=== PATIENT | male | born 1940 | race Caucasian/White ===

== ENCOUNTER 2017-01-06 07:41 | Day surgery (SDC) | payer MEDICARE, OTHER ==
[~2017-01-06] VITALS: Ht 175.3 cm; Wt 64.0 kg
[~2017-01-06 07:41] MED LIST: ATIVAN-DPS0.5 MG PO; ATIVAN-DPS2 MG PO; BENADRYL25 MG PO; CEFTIN250 MG PO; CENTRUM SILVER1 EAC1 PO; CHLORASEPTIC SPR6 OZ PO; DEBROX OTIC15 ML AU; DELTASONE DPS1 MG PO; DOXYCYCLINE MO100 MG PO; DUONEB DPS3 ML IH; FLAGYL-DPS500 MG PO; FLONASE 0.05% D16 GM NS; LIPITOR DPS20 MG PO; MAALOX DPS30 ML PO; NITROSTAT0.4 MG SL; NIZORAL SHAMPO120 ML TP; PEPCID DPS20 MG PO; PROTONIX40 MG PO; PROVENTIL2.5 MG/0.5 IH; PROVENTIL2.5 MG/3 M IH; QUESTRAN DPS4 GM PO; REQUIP1 MG PO; RISPERDAL2 MG PO; SINEMET 25-1001 EACH PO; SPIRIVA18 MCG PO; SURFAK DPS240 MG PO; TYLENOL DPS325 MG PO; VITAMIN D31000 UNIT PO; WELLBUTRIN SR150 M1 PO; ZESTRIL DPS20 MG PO
--- NOTE | 2017-01-20 07:06 | OR ---
ADMIT: 01/06/2017 RM/LOC: [facility] MR#: [id number] [facility]#: [id number] [address] [id number] LEO BOOTH [address] [place] [address] JOEL PETERS [id number] Operative/Delivery Room Report SEX: M AGE: 76 : 1940 SURGERY DATE: 01/06/2017 SURGEON: Elton June MD PREOPERATIVE DIAGNOSES: 1. Chronic constipation. 2. History of colon polyps. 3. History of colitis. POSTOPERATIVE DIAGNOSES: 1. Sigmoid diverticula. No evidence of colitis. 2. Small adenomatous appearing polyp within the cecum very near to the appendiceal orifice on the ileocecal valve side of the cecum. PROCEDURES PERFORMED: 1. Colonoscopy with hot snare. 2. Removal of polyp in the cecum. ANESTHESIA: Sedation. ESTIMATED BLOOD LOSS: None. DESCRIPTION OF PROCEDURE: After appropriate informed consent was obtained, the patient was brought to the endoscopy suite. IV sedation was provided. Rectal exam was normal. No hemorrhoids or rectal masses. The scope was introduced, passed through the entire length of colon. He had a moderate prep, some liquid stool throughout, that was able to irrigate and suction out. He had no evidence of colitis or inflammation. He did have a fairly tortuous sigmoid colon and a quite a few diverticula. The scope was easily advanced down to the cecum. The ileocecal valve and appendicial orifice appeared normal. Very near the appendiceal orifice on the ileocecal valve side of the cecum, was a small adenomatous polyp, was removed first with several bites of cold biopsy forceps and then the hot snare to remove the remainder of the polyp. Polypectomy site appeared hemostatic and intact. The remaining fragments of the polyp were retrieved with the biopsy forceps. The scope was then slowly and carefully withdrawn, and again, the colonic mucosa appeared normal on the way out. The scope was retroflexed in the rectum revealing no internal hemorrhoids or rectal masses. The patient tolerated the procedure well and was taken to the recovery room in stable condition. Elton June MD/ delores JOB #: [id number] CC: Elton June, Attending Physician Puneet Rick, Family Physician
== END 2017-01-06 12:20 | disposition home or self-care (01) ==
LOC: SSS 07:41
PROC: 0DBH8ZX Excision of Cecum, Via Natural or Artificial Opening Endoscopic, Diagnostic (ICD-10-PCS; principal; 2017-01-06)
DX: D12.0 Benign neoplasm of cecum (principal); J45.909 Unspecified asthma, uncomplicated; I10 Essential (primary) hypertension; M81.0 Age-related osteoporosis without current pathological fracture; E78.5 Hyperlipidemia, unspecified; B19.20 Unspecified viral hepatitis C without hepatic coma; Z90.49 Acquired absence of other specified parts of digestive tract; Z79.899 Other long term (current) drug therapy; Z98.890 Other specified postprocedural states; Z87.891 Personal history of nicotine dependence; Z86.010 Personal history of colon polyps